=== PATIENT | male | born 1935 | race Caucasian/White ===

== ENCOUNTER 2018-05-15 14:35 | Inpatient (IN) | payer MEDICARE, OTHER ==
[~2018-05-15] VITALS: Ht 190.5 cm; Wt 81.0 kg
[~2018-05-15 14:35] MED LIST: ASPI-1265 PO; ATOR40TA PO; CARV3.12 PO; ESOM40CA PO; NIA500ERT PO; OMEG500C PO; [UNRECOGNIZED DRUG - CODE] PO; [UNRECOGNIZED DRUG - CODE] PO
[2018-05-15] MEDS ORDERED: normal saline 1000ML IV soln IV ONE ×2 (14:45→16:25)
[2018-05-15 15:12] LABS: BASOPHILS # (AUTO) 0.4 X10'3 (0-0.2); BASOPHILS % (AUTO) 4.8 % (0-1); EOSINOPHILS # (AUTO) 0.1 X10'3 (0-0.9); EOSINOPHILS % (AUTO) 1.4 % (0-6); HEMATOCRIT 47.6 % (42.0-52.0); HEMOGLOBIN 15.4 g/dl (14.0-17.9); MEAN CORPUSCULAR HEMOGLOBIN 29.6 PG (27.0-31.0); MEAN CORPUSCULAR HGB CONC 32.3 % (33.0-36.5); MEAN CORPUSCULAR VOLUME 91.7 FL (78-98); MONOCYTES % (AUTO) 12.2 % (2-12); NEUTROPHILS # (AUTO) 5.5 X10'3 (1.8-7.7); NEUTROPHILS % (AUTO) 68.6 % (42-75); PLATELET COUNT 164 X10'3 (140-440); RED BLOOD COUNT 5.19 X10'6 (4.70-6.10); RED CELL DISTRIBUTION WIDTH 13.7 % (11.5-14.5)
[2018-05-15 16:02] LABS: ALANINE AMINOTRANSFERASE 63 U/L (12-78); ALBUMIN 3.2 G/DL (3.4-5.0); ALBUMIN/GLOBULIN RATIO 0.8 (1.1-1.5); ALKALINE PHOSPHATASE 105 IU/L (46-116); ANION GAP 9 (8-16); ASPARTATE AMINO TRANSFERASE 47 U/L (10-37); BILIRUBIN,TOTAL 0.7 MG/DL (0.1-1.0); BLOOD UREA NITROGEN 16 MG/DL (7-18); BUN/CREATININE RATIO 15.4 (5.4-32.0); CALCIUM 8.5 MG/DL (8.5-10.1); CHLORIDE 100 MMOL/L (99-107); CREATININE 1.04 MG/DL (0.60-1.10); GLUCOSE 230 MG/DL (70-104); POTASSIUM 4.5 MMOL/L (3.5-5.1); SODIUM 134 MMOL/L (135-145); TOTAL CARBON DIOXIDE 24.6 MMOL/L (24-32); TOTAL PROTEIN 7.3 G/DL (6.4-8.2); eGFR 69 ML/MIN
[2018-05-15] MEDS ORDERED: levoFLOXACIN-Levaquin 500mg/D5 100 ML IV ONE (16:25)
[2018-05-15] MEDS ORDERED: oseltamivir phos 75mg capsule PO ONE ×2 (16:25→17:10)
[2018-05-15] MEDS ORDERED: MESSAGE TO PHARMACY PO ONE (17:10)
[2018-05-15] MEDS ORDERED: mag hydrox/Alum hydrox/simeth 30ml oral suspension PO PRN (17:10)
[2018-05-15] MEDS ORDERED: HYDROcodone/acetaminophen 5mg/325mg tablet PO PRN (17:10)
[2018-05-15] MEDS ORDERED: magnesium hydroxide 30ml (MOM) UD suspension PO PRN (17:10)
[2018-05-15] MEDS ORDERED: glucagon, human recombinant 1mg kit SUBCUT PRN (17:10)
[2018-05-15] MEDS ORDERED: dextrose ORAL solution 15 GM/59 ML bottle PO PRN ×2 (17:10)
[2018-05-15] MEDS ORDERED: dextrose 50%-water 50ml dispensing syringe IV PRN ×2 (17:10)
[2018-05-15] MEDS ORDERED: insulin Lispro (HumaLOG) vial - multi-dose SQ SCH (17:10)
[2018-05-15] MEDS ORDERED: acetaminophen 325mg tablet PO PRN ×2 (17:10)
[2018-05-15] MEDS ORDERED: HYDROcodone/acetaminophen 10/325mg tab PO PRN (17:10)
[2018-05-15] MEDS ORDERED: CARV3.12 PO (17:15)
--- NOTE | 2018-05-15 18:23 | NUR ---
RN called report to Ortho. Audra CARTAGENA is going to be the RN. She is unable to take report at the moment and will call back.
[2018-05-15 18:32] LABS: CLARITY,URINE CLEAR (Clear); COLOR,URINE YELLOW (Yellow); GLUCOSE, URINE >=1000 mg/dl (Neg); KETONES,URINE TRACE mg/dl (Neg); NITRITES, URINE NEGATIVE (Neg); OCCULT BLOOD,URINE LARGE (Neg); PH,URINE 5.5 (4.8-8.0); PROTEIN,URINE NEGATIVE (Neg); UA COLLECTION TYPE CLN CATCH MIDSTREAM
[2018-05-15 18:33] LABS: LEUKOCYTE ESTERASE ,URINE NEGATIVE (Neg); UROBILINOGEN,URINE 0.2 E.U/dL (0.2-1.0)
[2018-05-15 18:35] LABS: BACTERIA,URINE NONE SEEN /HPF (Neg); SQUAMOUS EPITHELIAL CELL,UR FEW /LPF (FEW); WBC,URINE NONE SEEN /HPF (0-4)
--- NOTE | 2018-05-15 19:00 | NUR ---
PT ARRIVED TO ROOM 4017 FROM ER. PT HAS BEEN ORIENTED TO THE ROOM. CALL LIGHT IN HAND. RECEIVED REPORT FROM OSIEL BRAUN PRIOR TO PT'S ARRIVAL.
[2018-05-15] MEDS: ondansetron/PF 4mg/2ml inj IV PRN (19:20)
[2018-05-15 19:33] VITALS: BP 168/73
[2018-05-15 20:25] LABS: HEMOGLOBIN A1C 10.4 % (4.5-6.2)
[2018-05-15] MEDS ORDERED: temazepam 15mg capsule PO PRN (21:00)
[2018-05-15] MEDS ORDERED: insulin glargine (Lantus) pen - multi-dose SQ SCH (21:00)
--- NOTE | 2018-05-15 21:00 | NUR ---
NOTIFIED PT'S ELEVATED TROPONIN LEVEL. VSS. NO PAIN. RECEIVED ORDER FOR DAILY ASPIRIN STARTING NOW.
[2018-05-15] MEDS: normal saline 1000ml 1,000 ML IV SCH (21:19)
[2018-05-15] MEDS ORDERED: aspirin 81mg tab.chew PO ONE (21:50)
[2018-05-15 22:00] VITALS: BP 126/54
--- NOTE | 2018-05-16 06:33 | NUR ---
Problems reprioritized. Patient report given, questions answered & plan of care reviewed with OSIEL VAN.
[2018-05-16 07:00] VITALS: BP 124/72
[2018-05-16 07:28] LABS: BASOPHILS % (AUTO) 0.1 % (0-1); EOSINOPHILS % (AUTO) 0.1 % (0-6); HEMATOCRIT 42.6 % (42.0-52.0); HEMOGLOBIN 13.6 g/dl (14.0-17.9); LYMPHOCYTES # (AUTO) 0.6 X10'3 (1.1-4.8); LYMPHOCYTES % (AUTO) 11.5 % (21-51); MEAN CORPUSCULAR HEMOGLOBIN 29.8 PG (27.0-31.0); MEAN PLATELET VOLUME 8.6 FL (7.4-10.4); MONOCYTES # (AUTO) 0.6 X10'3 (0-0.9); MONOCYTES % (AUTO) 10.8 % (2-12); NEUTROPHILS # (AUTO) 4.3 X10'3 (1.8-7.7); NEUTROPHILS % (AUTO) 77.5 % (42-75); PLATELET COUNT 143 X10'3 (140-440); RED BLOOD COUNT 4.58 X10'6 (4.70-6.10); RED CELL DISTRIBUTION WIDTH 13.6 % (11.5-14.5); WHITE BLOOD COUNT 5.5 X10'3 (4.5-11.0)
[2018-05-16 07:39] LABS: ALBUMIN 2.9 G/DL (3.4-5.0); ANION GAP 8 (8-16); BLOOD UREA NITROGEN 15 MG/DL (7-18); BUN/CREATININE RATIO 14.7 (5.4-32.0); CALCIUM 7.8 MG/DL (8.5-10.1); CHLORIDE 100 MMOL/L (99-107); CREATININE 1.02 MG/DL (0.60-1.10); GLUCOSE 196 MG/DL (70-104); SODIUM 134 MMOL/L (135-145); TOTAL CARBON DIOXIDE 25.9 MMOL/L (24-32); eGFR 70 ML/MIN
[2018-05-16] MEDS ORDERED: enoxaparin 40mg/0.4ml syringe SUBCUT SCH (08:00)
[2018-05-16] MEDS ORDERED: levoFLOXACIN-Levaquin 750MG/D5 150 ML IV SCH (08:00)
[2018-05-16] MEDS ORDERED: aspirin 81mg tab.chew PO SCH (08:30)
[2018-05-16] MEDS ORDERED: TAM75C PO (09:04)
[2018-05-16] MEDS ORDERED: ONDA4TAB6 PO (09:05)
[2018-05-16] MEDS ORDERED: oseltamivir phos 75mg capsule PO SCH (09:05)
[2018-05-16] MEDS: ondansetron/PF 4mg/2ml inj IV PRN (09:31)
[2018-05-16] MEDS: normal saline 1000ml 1,000 ML IV SCH (10:53)
== END 2018-05-16 12:01 | disposition home or self-care (01) | DRG 195 ==
LOC: ER 14:35 → ED HOLD 17:09 → OBSVTOIN 17:09 → INTOOBSV 17:09 → EDBEDREQ 18:16 → ORTHO 4S 19:02
PROVIDERS: ADMIT Hospitalist; ATTEND Internal Medicine
DX: J09.X1 Influenza due to identified novel influenza A virus with pneumonia (principal); E86.0 Dehydration; J18.8 Other pneumonia, unspecified organism; G89.29 Other chronic pain; M54.9 Dorsalgia, unspecified; E11.65 Type 2 diabetes mellitus with hyperglycemia; I25.10 Atherosclerotic heart disease of native coronary artery without angina pectoris; I25.2 Old myocardial infarction; Z98.61 Coronary angioplasty status; Z79.4 Long term (current) use of insulin; Z79.82 Long term (current) use of aspirin; Z79.899 Other long term (current) drug therapy; Z23 Encounter for immunization; Z82.49 Family history of ischemic heart disease and other diseases of the circulatory system
CPT/HCPCS: 36415; 71045; 80048; 80053; 81001; 82948; 83036; 83605; 83880; 84145; 84484; 85025; 87040; 87070; 87502; 87503; 93005; 96365; 99285; G0378; J1650; J1815; J1956; J2405; J7030

== ENCOUNTER 2019-04-12 19:21 | Inpatient (IN) | payer MEDICARE, OTHER ==
[~2019-04-12] VITALS: Ht 190.5 cm; Wt 93.1 kg
[~2019-04-12 19:21] MED LIST changes: +BACDS PO; +ONDA4TAB6 PO
[2019-04-12] MEDS ORDERED: normal saline 1000ml 1,000 ML IV ONE (19:31)
[2019-04-12 20:14] LABS: CLARITY,URINE SLIGHTLY CLOUDY (Clear); COLOR,URINE YELLOW (Yellow); GLUCOSE, URINE NEGATIVE (Neg); KETONES,URINE NEGATIVE (Neg); LEUKOCYTE ESTERASE ,URINE MODERATE (Neg); NITRITES, URINE NEGATIVE (Neg); OCCULT BLOOD,URINE MODERATE (Neg); PROTEIN,URINE TRACE mg/dl (Neg)
[2019-04-12 20:20] LABS: UA COLLECTION TYPE URINAL; URINE AMPHETAMINE SCREEN NEGATIVE (Neg); URINE BARBITUATE SCREEN NEGATIVE (Neg); URINE BENZODIAZEPINES SCREEN NEGATIVE (Neg); URINE CANNABINOID SCREEN NEGATIVE (Neg); URINE COCAINE SCREEN NEGATIVE (Neg); URINE METHADONE SCREEN NEGATIVE (Neg); URINE OPIATE SCREEN POSITIVE (Neg); URINE PHENCYCLIDINE SCREEN NEGATIVE (Neg)
[2019-04-12 20:22] LABS: BASOPHILS % (AUTO) 0.2 % (0-1); EOSINOPHILS # (AUTO) 0.1 X10'3 (0-0.9); LYMPHOCYTES # (AUTO) 0.5 X10'3 (1.1-4.8); MEAN CORPUSCULAR VOLUME 90.3 FL (78-98); MEAN PLATELET VOLUME 8.6 FL (7.4-10.4); RED CELL DISTRIBUTION WIDTH 14.3 % (11.5-14.5)
[2019-04-12 20:23] LABS: EOSINOPHILS % (AUTO) 0.4 % (0-6); HEMATOCRIT 40.1 % (42.0-52.0); HEMOGLOBIN 13.4 g/dl (14.0-17.9); LYMPHOCYTES % (AUTO) 3.5 % (21-51); MEAN CORPUSCULAR HEMOGLOBIN 30.2 PG (27.0-31.0); MEAN CORPUSCULAR HGB CONC 33.4 g/dL (33.0-36.5); MONOCYTES # (AUTO) 1.2 X10'3 (0-0.9); MONOCYTES % (AUTO) 9.1 % (2-12); NEUTROPHILS # (AUTO) 11.7 X10'3 (1.8-7.7); NEUTROPHILS % (AUTO) 86.8 % (42-75); PLATELET COUNT 126 X10'3 (140-440); RED BLOOD COUNT 4.44 X10'6 (4.70-6.10); WHITE BLOOD COUNT 13.5 X10'3 (4.5-11.0)
[2019-04-12 20:24] LABS: BACTERIA,URINE 1+ /HPF (Neg); MUCUS STRANDS FEW /LPF (Neg); SQUAMOUS EPITHELIAL CELL,UR FEW /LPF (FEW); WBC,URINE 20-30 /HPF (0-4)
[2019-04-12 20:32] LABS: PARTIAL THROMBOPLASTIN TIME 27 SECONDS (22-32)
[2019-04-12 20:44] LABS: ALANINE AMINOTRANSFERASE 20 U/L (12-78); ALBUMIN 2.8 G/DL (3.4-5.0); ALBUMIN/GLOBULIN RATIO 0.8 (1.1-1.5); ALKALINE PHOSPHATASE 97 IU/L (46-116); ANION GAP 9 (8-16); ASPARTATE AMINO TRANSFERASE 25 U/L (10-37); BILIRUBIN,TOTAL 0.6 MG/DL (0.1-1.0); BLOOD UREA NITROGEN 27 MG/DL (7-18); BUN/CREATININE RATIO 18.9 (5.4-32.0); CALCIUM 8.4 MG/DL (8.5-10.1); CHLORIDE 99 MMOL/L (99-107); CREATININE 1.43 MG/DL (0.60-1.10); ETHANOL < 0.010 GM/DL (0.0-0.010); GLUCOSE 140 MG/DL (70-104); SODIUM 133 MMOL/L (135-145); TOTAL CARBON DIOXIDE 25.3 MMOL/L (24-32); TOTAL PROTEIN 6.5 G/DL (6.4-8.2); eGFR 47 ML/MIN
[2019-04-12 20:50] LABS: POTASSIUM 5.1 MMOL/L (3.5-5.1)
[2019-04-12] MEDS ORDERED: CefTRIAXone 2gm/D5W 50ml 50 ML IV ONE (20:50)
[2019-04-12] MEDS ORDERED: ondansetron/PF 4mg/2ml inj IV PRN (21:25)
[2019-04-12] MEDS ORDERED: HYDROcodone/acetaminophen 5mg/325mg tablet PO PRN (21:25)
[2019-04-12] MEDS ORDERED: mag hydrox/Alum hydrox/simeth 30ml oral suspension PO PRN (21:25)
[2019-04-12] MEDS ORDERED: magnesium Cl slow-release 64mg tablet PO PRN (21:25)
[2019-04-12] MEDS ORDERED: magnesium 2GM in 50ml NS 50 ML IV PRN (21:25)
[2019-04-12] MEDS ORDERED: potassium Cl 20 mEq SR tablet PO PRN ×2 (21:25)
[2019-04-12] MEDS ORDERED: acetaminophen 325mg tablet PO PRN ×2 (21:25)
[2019-04-12] MEDS ORDERED: magnesium 4gm in 100ml NS 100 ML IV PRN (21:25)
[2019-04-12] MEDS ORDERED: magnesium hydroxide 30ml (MOM) UD suspension PO PRN (21:25)
[2019-04-12] MEDS ORDERED: morphine 2 MG/ML inj. syringe IV PRN ×2 (21:25)
[2019-04-12] MEDS ORDERED: potassium CL 10mEq/100ml bag 100 ML IV PRN ×2 (21:25)
[2019-04-12] MEDS ORDERED: LANTUS (21:28)
[2019-04-12] MEDS ORDERED: GABA-532 PO (21:28)
[2019-04-12] MEDS ORDERED: SITA100T11 PO (21:28)
[2019-04-12] MEDS ORDERED: OMEP40CA13 PO (21:33)
[2019-04-12] MEDS ORDERED: CHOL100046 PO (21:33)
[2019-04-12] MEDS ORDERED: CALC625T68 PO (21:35)
[2019-04-12] MEDS: normal saline 1000ml 1,000 ML IV SCH ×2 (21:41→23:00)
--- NOTE | 2019-04-12 22:00 | NUR ---
Patient in room [facility]. I have received report from Enedina, ED RN and had the opportunity to ask questions and assume patient care.
[2019-04-12 22:35] VITALS: BP 152/71
[2019-04-12] MEDS ORDERED: MESSAGE TO PHARMACY PO ONE (22:35)
[2019-04-12] MEDS ORDERED: dextrose ORAL solution 15 GM/59 ML bottle PO PRN ×2 (22:35)
[2019-04-12] MEDS ORDERED: dextrose 50%-water 50ml dispensing syringe IV PRN ×2 (22:35)
[2019-04-12] MEDS ORDERED: insulin Lispro (HumaLOG) vial - multi-dose SQ SCH (22:35)
[2019-04-12] MEDS ORDERED: glucagon, human recombinant 1mg kit SUBCUT PRN (22:35)
[2019-04-12 22:56] LABS: HEMOGLOBIN A1C 7.5 % (4.5-6.2)
--- NOTE | 2019-04-13 01:05 | NUR ---
Patient has minimal output since arrival on floor. Bladder scan performed, 267 post void residual. Will continue to monitor.
--- NOTE | 2019-04-13 04:15 | NUR ---
Bladder scan performed, 194 mL, post void residual. Will continue to monitor.
[2019-04-13] MEDS: normal saline 1000ml 1,000 ML IV SCH ×2 (05:46→15:46)
--- NOTE | 2019-04-13 06:15 | NUR ---
Patient in room [facility]. I have received report from OSIEL Arias and had the opportunity to ask questions and assume patient care.
[2019-04-13 06:30] VITALS: BP 138/63
--- NOTE | 2019-04-13 06:54 | NUR ---
Problems reprioritized. Patient report given, questions answered & plan of care reviewed with OSIEL Montemayor.
[2019-04-13] MEDS: K and/or MAG REPLACEMENT MC SCH (07:01)
[2019-04-13 07:58] LABS: BASOPHILS % (AUTO) 0.2 % (0-1); EOSINOPHILS # (AUTO) 0.1 X10'3 (0-0.9); EOSINOPHILS % (AUTO) 0.6 % (0-6); HEMATOCRIT 37.8 % (42.0-52.0); HEMOGLOBIN 12.9 g/dl (14.0-17.9); LYMPHOCYTES # (AUTO) 0.9 X10'3 (1.1-4.8); LYMPHOCYTES % (AUTO) 8.5 % (21-51); MEAN CORPUSCULAR HEMOGLOBIN 30.8 PG (27.0-31.0); MEAN CORPUSCULAR HGB CONC 34.2 g/dL (33.0-36.5); MEAN PLATELET VOLUME 7.9 FL (7.4-10.4); MONOCYTES # (AUTO) 1.5 X10'3 (0-0.9); NEUTROPHILS # (AUTO) 7.7 X10'3 (1.8-7.7); NEUTROPHILS % (AUTO) 75.7 % (42-75); PLATELET COUNT 119 X10'3 (140-440); RED BLOOD COUNT 4.19 X10'6 (4.70-6.10); RED CELL DISTRIBUTION WIDTH 14.3 % (11.5-14.5); WHITE BLOOD COUNT 10.2 X10'3 (4.5-11.0)
[2019-04-13 08:12] LABS: ALBUMIN 2.5 G/DL (3.4-5.0); ANION GAP 10 (8-16); BLOOD UREA NITROGEN 21 MG/DL (7-18); BUN/CREATININE RATIO 17.6 (5.4-32.0); CALCIUM 7.8 MG/DL (8.5-10.1); CHLORIDE 101 MMOL/L (99-107); CREATININE 1.19 MG/DL (0.60-1.10); GLUCOSE 109 MG/DL (70-104); MAGNESIUM 1.9 MG/DL (1.5-2.4); POTASSIUM 4.3 MMOL/L (3.5-5.1); SODIUM 133 MMOL/L (135-145); TOTAL CARBON DIOXIDE 22.4 MMOL/L (24-32); eGFR 59 ML/MIN
[2019-04-13 08:25] LABS: TOTAL CELLS COUNTED 100
[2019-04-13 08:26] LABS: PLATELET ESTIMATE DECREASED; POIKILOCYTOSIS 1+
[2019-04-13] MEDS: vitamin D (cholecalciferol) 1,000 unit tablet PO SCH (09:36)
[2019-04-13] MEDS: CefTRIAXone 2gm/D5W 50ml 50 ML IV SCH (09:36)
[2019-04-13] MEDS: lactobacillus rhamnosus 10,000 MMU CELLS/CAPSULE PO SCH ×2 (09:40→19:26)
[2019-04-13] MEDS: aspirin 81mg tab.chew PO SCH (09:41)
[2019-04-13] MEDS: gabapentin 300mg capsule PO SCH ×2 (09:41→19:26)
[2019-04-13] MEDS: carVEDilol 3.125mg tablet PO SCH ×2 (09:41→19:26)
[2019-04-13] MEDS: pantoprazole 40mg Tablet.DR PO SCH (09:41)
[2019-04-13] MEDS: calcium polycarbophil 625mg tablet PO SCH (09:44)
[2019-04-13] MEDS: enoxaparin 40mg/0.4ml syringe SQ SCH (09:45)
[2019-04-13] MEDS: OMEGA-3/DHA/EPA/FISH OIL 1 EACH CAPSULE.DR PO SCH (09:50)
[2019-04-13] MEDS: niacin 500mg ER (Niaspan) tablet PO SCH (09:50)
[2019-04-13] MEDS ORDERED: pneumococcal 23-VAL P-sac vacc 25 mcg/0.5ml vial IMVAC ONE (10:30)
[2019-04-13 11:00] VITALS: BP 137/63
--- NOTE | 2019-04-13 15:15 | NUR ---
DM Consult: A1C 7.5 hx T2DM. Pt seen by RD for written DM ed w/ RD contact information; pt declined verbal ed and reports no nutrition concerns at this time. Admit w/ weakness and fall secondary to UTI. Will continue to monitor. Addendum: 04/13/19 at [address] Amended: Links added.
--- NOTE | 2019-04-13 18:00 | NUR ---
Problems reprioritized. Patient report given, questions answered & plan of care reviewed with OSIEL Arias.
[2019-04-13 18:15] VITALS: BP 147/68
--- NOTE | 2019-04-13 18:19 | NUR ---
Patient in room [facility]. I have received report from OSIEL Montemayor and had the opportunity to ask questions and assume patient care.
[2019-04-13] MEDS ORDERED: insulin glargine (Lantus) pen - multi-dose SQ SCH (21:00)
[2019-04-13] MEDS ORDERED: atorvastatin 20mg tablet PO SCH (21:00)
[2019-04-13] MEDS: phenazopyridine 100mg tablet PO SCH (21:28)
[2019-04-14 00:32] VITALS: BP_SYST 129; BP_SYST 146; BP_SYST 148; BP_DIAS 68; BP_DIAS 70; BP_DIAS 90
[2019-04-14 00:34] VITALS: BP 146/70
[2019-04-14] MEDS: normal saline 1000ml 1,000 ML IV SCH (02:08)
--- NOTE | 2019-04-14 03:45 | NUR ---
Entered room with patient using urinal, output 100 mL, concentrated bright light orange, no odor urine. Patient c/o 910 pain during urination, radiating to lower abd, worse than before. Gave 1st dose pyridium 100mg on 04/13 at 3478. Paged and received call from Dr. Cody to place order for US kidney-nonvascular to r/o stone in addition to administer PRN pain meds. Order for stat US Kidney placed.
--- NOTE | 2019-04-14 03:50 | NUR ---
Bladder scan performed, 352 mL post void residual. Pt place NPO for stat US Kidney. Instructions for radiology given to pt. Offered PRN pain meds and pt states he does not want any pain medications at this time. Will continue to monitor.
[2019-04-14 04:45] LABS: EOSINOPHILS # (AUTO) 0.1 X10'3 (0-0.9); HEMOGLOBIN 12.6 g/dl (14.0-17.9); LYMPHOCYTES # (AUTO) 1.3 X10'3 (1.1-4.8); MEAN CORPUSCULAR HEMOGLOBIN 30.1 PG (27.0-31.0); MEAN PLATELET VOLUME 8.1 FL (7.4-10.4); MONOCYTES # (AUTO) 1.5 X10'3 (0-0.9)
[2019-04-14 04:46] LABS: BASOPHILS % (AUTO) 0.5 % (0-1); EOSINOPHILS % (AUTO) 1.6 % (0-6); HEMATOCRIT 36.9 % (42.0-52.0); LYMPHOCYTES % (AUTO) 17.5 % (21-51); MEAN CORPUSCULAR VOLUME 88.5 FL (78-98); MONOCYTES % (AUTO) 20.4 % (2-12); NEUTROPHILS # (AUTO) 4.4 X10'3 (1.8-7.7); PLATELET COUNT 130 X10'3 (140-440); RED BLOOD COUNT 4.17 X10'6 (4.70-6.10); WHITE BLOOD COUNT 7.4 X10'3 (4.5-11.0)
[2019-04-14 04:58] LABS: ALBUMIN 2.5 G/DL (3.4-5.0); ANION GAP 8 (8-16); BLOOD UREA NITROGEN 17 MG/DL (7-18); BUN/CREATININE RATIO 13.9 (5.4-32.0); CALCIUM 8.1 MG/DL (8.5-10.1); CHLORIDE 102 MMOL/L (99-107); CREATININE 1.22 MG/DL (0.60-1.10); GLUCOSE 157 MG/DL (70-104); MAGNESIUM 1.9 MG/DL (1.5-2.4); POTASSIUM 4.2 MMOL/L (3.5-5.1); SODIUM 134 MMOL/L (135-145); TOTAL CARBON DIOXIDE 24.2 MMOL/L (24-32); eGFR 57 ML/MIN
--- NOTE | 2019-04-14 06:05 | NUR ---
Patient in room [facility]. I have received report from OSIEL Arias and had the opportunity to ask questions and assume patient care.
--- NOTE | 2019-04-14 06:19 | NUR ---
Problems reprioritized. Patient report given, questions answered & plan of care reviewed with OSIEL Montemayor.
[2019-04-14 06:30] VITALS: BP 141/66
[2019-04-14] MEDS: K and/or MAG REPLACEMENT MC SCH (06:55)
[2019-04-14 06:58] LABS: NUCLEATED RED BLOOD CELLS 1 /100WBC (0-0); TOTAL CELLS COUNTED 100
[2019-04-14 06:59] LABS: PLATELET ESTIMATE DECREASED; POIKILOCYTOSIS 1+
[2019-04-14] MEDS: CefTRIAXone 2gm/D5W 50ml 50 ML IV SCH (08:23)
[2019-04-14] MEDS: pantoprazole 40mg Tablet.DR PO SCH (08:23)
[2019-04-14] MEDS: vitamin D (cholecalciferol) 1,000 unit tablet PO SCH (08:23)
[2019-04-14] MEDS: gabapentin 300mg capsule PO SCH (08:23)
[2019-04-14] MEDS: OMEGA-3/DHA/EPA/FISH OIL 1 EACH CAPSULE.DR PO SCH (08:23)
[2019-04-14] MEDS: phenazopyridine 100mg tablet PO SCH (08:23)
[2019-04-14] MEDS: lactobacillus rhamnosus 10,000 MMU CELLS/CAPSULE PO SCH (08:23)
[2019-04-14] MEDS: aspirin 81mg tab.chew PO SCH (08:23)
[2019-04-14] MEDS: niacin 500mg ER (Niaspan) tablet PO SCH (08:24)
[2019-04-14] MEDS: carVEDilol 3.125mg tablet PO SCH (08:24)
[2019-04-14] MEDS: calcium polycarbophil 625mg tablet PO SCH (08:24)
[2019-04-14] MEDS: enoxaparin 40mg/0.4ml syringe SQ SCH (08:25)
[2019-04-14 11:00] VITALS: BP 140/65
[2019-04-14] MEDS ORDERED: PHEN-786 PO (12:34)
[2019-04-14 12:37] VITALS: BP_SYST 130; BP_SYST 140; BP_SYST 143; BP_DIAS 54; BP_DIAS 61; BP_DIAS 65
[2019-04-14] MEDS ORDERED: phenazopyridine 100mg tablet PO SCH (13:00)
--- NOTE | 2019-04-14 14:00 | NUR ---
DC inst provided to pt. IV DC'd, tip intact. All belongings sent w/pt. Pt ambulated to front lobby.
== END 2019-04-14 14:00 | disposition home or self-care (01) | DRG 91 ==
LOC: ER 19:21 → ED HOLD 21:31 → EDBEDREQ 21:47 → CMPBEDREQ 22:16 → SUR 3N 22:20 → OBSVTOIN 04-13 08:07
PROVIDERS: ADMIT Hospitalist; ATTEND Family Medicine
DX: G92 Toxic encephalopathy (principal); N17.0 Acute kidney failure with tubular necrosis; N39.0 Urinary tract infection, site not specified; E87.1 Hypo-osmolality and hyponatremia; E78.00 Pure hypercholesterolemia, unspecified; E78.5 Hyperlipidemia, unspecified; M54.9 Dorsalgia, unspecified; E11.21 Type 2 diabetes mellitus with diabetic nephropathy; W18.39XA Other fall on same level, initial encounter; E86.0 Dehydration; T36.8X5A Adverse effect of other systemic antibiotics, initial encounter; G89.29 Other chronic pain; I25.10 Atherosclerotic heart disease of native coronary artery without angina pectoris; I25.2 Old myocardial infarction; Z79.4 Long term (current) use of insulin; Z82.49 Family history of ischemic heart disease and other diseases of the circulatory system; Z95.5 Presence of coronary angioplasty implant and graft; Y93.89 Activity, other specified; Y92.89 Other specified places as the place of occurrence of the external cause; Y99.8 Other external cause status; Z79.899 Other long term (current) drug therapy; Z79.82 Long term (current) use of aspirin
CPT/HCPCS: 36415; 74176; 76775; 80048; 80053; 80305; 80320; 81001; 82948; 83036; 83605; 83735; 84145; 84484; 85025; 85610; 85730; 87040; 87081; 87088; 90732; 93005; 97116; 97162; G0378; J0696; J1650; J1815; J7030

== ENCOUNTER 2019-12-31 07:43 | Emergency (ER) | payer MEDICARE, OTHER ==
[~2019-12-31] VITALS: Ht 190.5 cm; Wt 90.9 kg
[~2019-12-31 07:43] MED LIST changes: -BACDS PO; +CALC625T68 PO; +CHOL100046 PO; -ESOM40CA PO; +GABA-532 PO; +LANTUS; +OMEP40CA13 PO; -ONDA4TAB6 PO; +PHEN-786 PO; +SITA100T11 PO; -[UNRECOGNIZED DRUG - CODE] PO; -[UNRECOGNIZED DRUG - CODE] PO
[2019-12-31] MEDS ORDERED: normal saline 1000ML IV soln IVB ONE (08:50)
[2019-12-31] MEDS ORDERED: pantoprazole 40 MG vial IV ONE (08:50)
[2019-12-31 08:55] LABS: BASOPHILS # (AUTO) 0.1 X10'3 (0-0.2); BASOPHILS % (AUTO) 0.4 % (0-1); EOSINOPHILS # (AUTO) 0.3 X10'3 (0-0.9); EOSINOPHILS % (AUTO) 2.2 % (0-6); HEMATOCRIT 40.7 % (42.0-52.0); HEMOGLOBIN 13.3 g/dl (14.0-17.9); LYMPHOCYTES # (AUTO) 1.7 X10'3 (1.1-4.8); LYMPHOCYTES % (AUTO) 13.2 % (21-51); MEAN CORPUSCULAR HEMOGLOBIN 29.8 PG (27.0-31.0); MEAN CORPUSCULAR HGB CONC 32.6 g/dL (33.0-36.5); MEAN CORPUSCULAR VOLUME 91.4 FL (78-98); MEAN PLATELET VOLUME 8.6 FL (7.4-10.4); MONOCYTES # (AUTO) 1.2 X10'3 (0-0.9); MONOCYTES % (AUTO) 9.3 % (2-12); NEUTROPHILS # (AUTO) 9.4 X10'3 (1.8-7.7); NEUTROPHILS % (AUTO) 74.9 % (42-75); PLATELET COUNT 140 X10'3 (140-440); RED BLOOD COUNT 4.45 X10'6 (4.70-6.10); RED CELL DISTRIBUTION WIDTH 14.7 % (11.5-14.5); WHITE BLOOD COUNT 12.6 X10'3 (4.5-11.0)
[2019-12-31 09:09] LABS: ALANINE AMINOTRANSFERASE 21 U/L (12-78); ALBUMIN 3.2 G/DL (3.4-5.0); ALKALINE PHOSPHATASE 110 IU/L (46-116); ANION GAP 7 (8-16); ASPARTATE AMINO TRANSFERASE 19 U/L (10-37); BILIRUBIN,TOTAL 0.6 MG/DL (0.1-1.0); BLOOD UREA NITROGEN 24 MG/DL (7-18); BUN/CREATININE RATIO 23.3 (5.4-32.0); CALCIUM 8.4 MG/DL (8.5-10.1); CHLORIDE 106 MMOL/L (99-107); CREATININE 1.03 MG/DL (0.60-1.10); GLUCOSE 135 MG/DL (70-104); POTASSIUM 4.2 MMOL/L (3.5-5.1); SODIUM 139 MMOL/L (135-145); TOTAL CARBON DIOXIDE 26.3 MMOL/L (24-32); TOTAL PROTEIN 6.5 G/DL (6.4-8.2); eGFR 69 ML/MIN
[2019-12-31 09:13] LABS: LIPASE 135 U/L (73-393)
[2019-12-31 10:15] VITALS: BP 136/81
[2019-12-31] MEDS ORDERED: PANT-47 PO (10:25)
== END 2019-12-31 10:42 | disposition home or self-care (01) ==
LOC: ER 07:43
DX: R07.89 Other chest pain (principal); R10.13 Epigastric pain; I25.10 Atherosclerotic heart disease of native coronary artery without angina pectoris; E78.00 Pure hypercholesterolemia, unspecified; I25.2 Old myocardial infarction; E11.9 Type 2 diabetes mellitus without complications; G89.29 Other chronic pain; Z95.5 Presence of coronary angioplasty implant and graft; Z98.890 Other specified postprocedural states; Z79.82 Long term (current) use of aspirin; Z79.899 Other long term (current) drug therapy
CPT/HCPCS: 36415; 71045; 80053; 83690; 83880; 84484; 85025; 93005; 96374; 99285; C9113; J7030

== ENCOUNTER 2020-09-11 11:54 | Day surgery (SDC) | payer MEDICARE, OTHER ==
[2020-09-10 10:31] LABS: BASOPHILS # (AUTO) 0.1 X10'3 (0-0.2); BASOPHILS % (AUTO) 0.6 % (0-1); EOSINOPHILS # (AUTO) 0.2 X10'3 (0-0.9); HEMATOCRIT 41.8 % (42.0-52.0); HEMOGLOBIN 13.8 g/dl (14.0-17.9); LYMPHOCYTES # (AUTO) 2.4 X10'3 (1.1-4.8); LYMPHOCYTES % (AUTO) 26.5 % (21-51); MEAN CORPUSCULAR HEMOGLOBIN 30.7 PG (27.0-31.0); MEAN CORPUSCULAR HGB CONC 32.9 g/dL (33.0-36.5); MEAN CORPUSCULAR VOLUME 93.2 FL (78-98); MEAN PLATELET VOLUME 8.5 FL (7.4-10.4); MONOCYTES # (AUTO) 0.8 X10'3 (0-0.9); MONOCYTES % (AUTO) 9.1 % (2-12); NEUTROPHILS # (AUTO) 5.6 X10'3 (1.8-7.7); NEUTROPHILS % (AUTO) 61.8 % (42-75); PLATELET COUNT 155 X10'3 (140-440); RED BLOOD COUNT 4.48 X10'6 (4.70-6.10); RED CELL DISTRIBUTION WIDTH 15.2 % (11.5-14.5)
[2020-09-10 10:35] LABS: ALBUMIN 3.4 G/DL (3.4-5.0); ANION GAP 8 (8-16); BLOOD UREA NITROGEN 23 MG/DL (7-18); BUN/CREATININE RATIO 22.5 (5.4-32.0); CALCIUM 8.4 MG/DL (8.5-10.1); CHLORIDE 104 MMOL/L (99-107); CREATININE 1.02 MG/DL (0.60-1.10); GLUCOSE 214 MG/DL (70-104); POTASSIUM 4.6 MMOL/L (3.5-5.1); SODIUM 141 MMOL/L (135-145); TOTAL CARBON DIOXIDE 29.5 MMOL/L (24-32); eGFR 70 ML/MIN
[2020-09-10 10:40] LABS: PARTIAL THROMBOPLASTIN TIME 25 SECONDS (22-32)
[2020-09-10 12:50] LABS: BURR CELLS FEW; LARGE PLATELETS FEW; PLATELET ESTIMATE NORMAL
[2020-09-11] VITALS (8 sets, daily range): BP systolic 132–187; BP diastolic 70–98
[~2020-09-11] VITALS: Ht 188 cm; Wt 89.7 kg
[~2020-09-11 11:54] MED LIST changes: +PANT-47 PO
[2020-09-11] MEDS ORDERED: normal saline 1,000 ML IV SCH (12:15)
[2020-09-11] MEDS ORDERED: OMEP-50 PO (13:04)
[2020-09-11] MEDS ORDERED: NITR0.4T51 SL (13:05)
[2020-09-11] MEDS ORDERED: GLIM4TAB7 PO (13:05)
[2020-09-11] MEDS ORDERED: LIDOcaine 1% W/epiNEPHrine 1:100,000 20ml vial ONE (13:46)
[2020-09-11] MEDS ORDERED: midazolam 1 mg/ML 2ml injection ONE (13:46)
[2020-09-11] MEDS ORDERED: fentaNYL/PF 50MCG/1 ML 2ML syringe ONE (13:46)
[2020-09-11] MEDS ORDERED: ceFAZolin 1000mg inj ONE (13:46)
[2020-09-11] MEDS ORDERED: ceFAZolin 2gm in dextrose, iso 50 ML IV ONE (14:18)
[2020-09-11] MEDS ORDERED: HYDROcodone/acetaminophen 10/325mg tab PO PRN (16:35)
[2020-09-11] MEDS ORDERED: HYDROcodone/acetaminophen 5mg/325mg tablet PO PRN (16:35)
[2020-09-11] MEDS ORDERED: vancomycin/NS 1 GM ADD-VANTAGE 250 ML X 1 DOSE IV ONE (17:00)
[2020-09-11] MEDS ORDERED: acetaminophen 325mg tablet PO PRN (18:25)
== END 2020-09-11 19:50 | disposition home or self-care (01) ==
LOC: SSTAY O 11:54
PROVIDERS: ATTEND Internal Medicine Cardiovascular Disease
DX: I49.5 Sick sinus syndrome (principal); I25.10 Atherosclerotic heart disease of native coronary artery without angina pectoris; E11.43 Type 2 diabetes mellitus with diabetic autonomic (poly)neuropathy; K31.84 Gastroparesis; I10 Essential (primary) hypertension; E78.49 Other hyperlipidemia; G47.33 Obstructive sleep apnea (adult) (pediatric); I07.1 Rheumatic tricuspid insufficiency; Z95.5 Presence of coronary angioplasty implant and graft; Z79.82 Long term (current) use of aspirin; Z79.4 Long term (current) use of insulin; Z79.899 Other long term (current) drug therapy; Z98.890 Other specified postprocedural states; Z87.891 Personal history of nicotine dependence; Z72.89 Other problems related to lifestyle; Z79.01 Long term (current) use of anticoagulants
CPT/HCPCS: 33208; 36415; 71046; 80048; 82948; 85025; 85610; 85730; 93005; 99152; 99153; C1785; C1898; J0690; J2250; J3010; J3370; J7030; 85008; A4565; A4620; A6449

== ENCOUNTER 2020-11-05 08:53 | Outpatient (CLI) | payer MEDICARE, OTHER ==
[~2020-11-05 08:53] MED LIST changes: +GLIM4TAB7 PO; +NITR0.4T51 SL; +OMEP-50 PO; -OMEP40CA13 PO; -PANT-47 PO; -PHEN-786 PO; -SITA100T11 PO
== END 2020-11-05 23:59 | disposition home or self-care (01) ==
LOC: RAD 08:53
PROVIDERS: ATTEND Family Medicine
DX: M48.061 Spinal stenosis, lumbar region without neurogenic claudication (principal); M54.5 Low back pain
CPT/HCPCS: 72148

== ENCOUNTER 2021-01-05 08:28 | Emergency (ER) | payer MEDICARE, OTHER ==
[~2021-01-05] VITALS: Ht 190.5 cm; Wt 90.9 kg
[2021-01-05 08:48] VITALS: BP 114/65
[2021-01-05] MEDS ORDERED: normal saline 1000ML IV soln IVB ONE (08:50)
[2021-01-05] MEDS ORDERED: iohexol 300mg/ml 100ml inj. ONE (09:05)
[2021-01-05] MEDS ORDERED: acetaminophen 325mg tablet PO ONE (10:55)
== END 2021-01-05 11:18 | disposition home or self-care (01) ==
LOC: ER 08:29
DX: S20.212A Contusion of left front wall of thorax, initial encounter (principal); R10.12 Left upper quadrant pain; R10.9 Unspecified abdominal pain; I25.10 Atherosclerotic heart disease of native coronary artery without angina pectoris; E78.00 Pure hypercholesterolemia, unspecified; I25.2 Old myocardial infarction; Z87.440 Personal history of urinary (tract) infections; Z95.5 Presence of coronary angioplasty implant and graft; Z72.89 Other problems related to lifestyle; Z79.82 Long term (current) use of aspirin; Z79.4 Long term (current) use of insulin; Z79.899 Other long term (current) drug therapy; W06.XXXA Fall from bed, initial encounter; Y93.89 Activity, other specified; Y92.89 Other specified places as the place of occurrence of the external cause; Y99.8 Other external cause status
CPT/HCPCS: 71260; 74177; 99285; Q9967

== ENCOUNTER 2024-05-03 16:13 | Emergency (ER) | payer MEDICARE, OTHER ==
[~2024-05-03] VITALS: Ht 190.5 cm; Wt 89.0 kg
[~2024-05-03 16:13] MED LIST changes: -OMEP-50 PO; +OMEP20CA16 PO
[2024-05-03 16:16] VITALS: TEMP 98.7
[2024-05-03 17:05] LABS: BASOPHILS % (AUTO) 0.3 % (0-1); EOSINOPHILS # (AUTO) 0.1 X10'3 (0-0.9); HEMATOCRIT 40.4 % (42.0-52.0); HEMOGLOBIN 13.3 g/dl (14.0-17.9); LYMPHOCYTES # (AUTO) 1.4 X10'3 (1.1-4.8); LYMPHOCYTES % (AUTO) 10.2 % (21-51); MEAN CORPUSCULAR HEMOGLOBIN 31.4 PG (27.0-31.0); MEAN CORPUSCULAR HGB CONC 32.9 g/dL (33.0-36.5); MEAN CORPUSCULAR VOLUME 95.3 FL (78-98); MEAN PLATELET VOLUME 8.4 FL (7.4-10.4); MONOCYTES % (AUTO) 7.2 % (2-12); NEUTROPHILS # (AUTO) 11.2 X10'3 (1.8-7.7); NEUTROPHILS % (AUTO) 81.3 % (42-75); PLATELET COUNT 176 X10'3 (140-440); RED BLOOD COUNT 4.24 X10'6 (4.70-6.10); WHITE BLOOD COUNT 13.7 X10'3 (4.5-11.0)
[2024-05-03 17:33] LABS: ALANINE AMINOTRANSFERASE 22 U/L (12-78); ALBUMIN 3.3 G/DL (3.4-5.0); ALKALINE PHOSPHATASE 110 IU/L (46-116); ANION GAP 10 (8-16); ASPARTATE AMINO TRANSFERASE 21 U/L (10-37); BILIRUBIN,TOTAL 0.5 MG/DL (0.1-1.0); BLOOD UREA NITROGEN 28 MG/DL (7-18); BUN/CREATININE RATIO 23.1 (10.0-20.0); CALCIUM 8.8 MG/DL (8.5-10.1); CHLORIDE 104 MMOL/L (99-107); CREATININE 1.21 MG/DL (0.60-1.10); GLUCOSE 138 MG/DL (70-104); POTASSIUM 4.1 MMOL/L (3.5-5.1); SODIUM 139 MMOL/L (135-145); TOTAL CARBON DIOXIDE 25.2 MMOL/L (24-32); TOTAL PROTEIN 6.6 G/DL (6.4-8.2); eCRCL 51 ML/MIN; eGFR 57 ML/MIN
[2024-05-03 17:53] VITALS: BP 110/63; PULSE 89; RESP 16; O2SAT 98
== END 2024-05-03 18:16 | disposition home or self-care (01) ==
LOC: ER 16:13
DX: T38.3X1A Poisoning by insulin and oral hypoglycemic [antidiabetic] drugs, accidental (unintentional), initial encounter (principal); E11.649 Type 2 diabetes mellitus with hypoglycemia without coma; I25.10 Atherosclerotic heart disease of native coronary artery without angina pectoris; E78.00 Pure hypercholesterolemia, unspecified; G89.29 Other chronic pain; Z98.890 Other specified postprocedural states; Z79.82 Long term (current) use of aspirin; Y92.89 Other specified places as the place of occurrence of the external cause
CPT/HCPCS: 36415; 80053; 82948; 85025; 99283